=== PATIENT | female | born 1965 | race African-American/Black ===

== ENCOUNTER 2018-12-07 08:01 | Inpatient (IN) | payer BC ==
[~2018-12-07] VITALS: Ht 167.6 cm; Wt 98.4 kg
[2018-12-07 08:31] LABS: CHLORIDE 111 mEq/L (98-107)
[2018-12-07 08:32] LABS: BASOPHILS % 0.2 % (0.0-2.0); EOSINOPHILS % 4.6 % (0.0-5.0); LYMPHOCYTES % 26.6 % (20.0-50.0); MEAN CORPUSCULAR HEMOGLOBIN 28.4 pg (28.0-32.0); MEAN CORPUSCULAR VOLUME 85.4 fL (81.0-99.0); MEAN PLATELET VOLUME 7.7 fl (7.4-10.4); MONOCYTES % 3.6 % (2.0-8.0); PLATELET 350 x1000/uL (130-400); RED BLOOD CELL COUNT 4.92 mill/uL (4.2-5.4); RED CELL DISTRIBUTION WIDTH 15.1 % (11.6-14.6)
[2018-12-07 08:33] LABS: PROTHROMBIN TIME 10.2 sec (9.6-11.0)
[2018-12-07 08:36] LABS: ETHANOL BLOOD < 10 mg/dL
[2018-12-07 08:39] LABS: LDL CHOLESTEROL 130 mg/dL (5-100)
[2018-12-07 08:40] LABS: CREATINE KINASE 97 IU/L (26-192)
[2018-12-07] MEDS ORDERED: ASPIRIN 325MG EC TABLET PO ONE (09:15)
[2018-12-07] MEDS ORDERED: ONDANSETRON HCL 4MG/2ML INJ IV PRN (09:45)
[2018-12-07] MEDS ORDERED: IPRATROPIUM/ALBUTEROL 0.5-3(2.5)MG/3ML NEB INH PRN (09:45)
[2018-12-07] MEDS ORDERED: NA PHOS,M-B/NA PHOS,DI-BA ENEMA 118ML PR PRN (09:45)
[2018-12-07] MEDS ORDERED: HYDROCODONE/ACETAMINOPHEN 5/325MG TABLET PO PRN (09:45)
[2018-12-07] MEDS ORDERED: GUAIFENESIN 200MG/10ML SUGAR FREE UDC PO PRN (09:45)
[2018-12-07] MEDS ORDERED: DIPHENHYDRAMINE 50MG/ML VIAL IV PRN (09:45)
[2018-12-07] MEDS ORDERED: MAGNESIUM/ALUMINUM HYDROXIDE/SIMETHICONE 30ML UDC PO PRN (09:45)
[2018-12-07] MEDS ORDERED: CLONIDINE 0.1MG TABLET PO PRN (09:45)
[2018-12-07] MEDS ORDERED: DOCUSATE SODIUM 100MG CAPSULE PO PRN (09:45)
[2018-12-07] MEDS ORDERED: LORAZEPAM 2MG/ML CPJ IV PRN (09:45)
[2018-12-07 10:22] LABS: CHLORIDE 111 mEq/L (98-107)
[2018-12-07 11:44] VITALS: BP 147/76
[2018-12-07 12:19] VITALS: BP 147/76
[2018-12-07] MEDS: ENOXAPARIN 30MG/0.3ML SYR SUBCUT SCH (13:59)
[2018-12-07] MEDS ORDERED: IOHEXOL-350 100 ML BOTTLE ONE (14:04)
[2018-12-07 16:03] VITALS: BP 148/77
[2018-12-07] MEDS: SODIUM CHLORIDE 0.45% 1,000 ML IV SCH (17:27)
[2018-12-07] MEDS: CLOPIDOGREL 75MG TABLET PO SCH (19:39)
[2018-12-07 20:00] VITALS: BP 106/70
[2018-12-07] MEDS ORDERED: ATORVASTATIN CALCIUM 40MG TABLET PO SCH (21:00)
[2018-12-08] VITALS: BP 138/84
[2018-12-08 04:00] VITALS: BP 134/81
[2018-12-08 06:00] VITALS: BP 128/72
[2018-12-08] MEDS: ENOXAPARIN 30MG/0.3ML SYR SUBCUT SCH ×2 (06:40→17:37)
[2018-12-08 07:08] LABS: BASOPHILS % 0.7 % (0.0-2.0); EOSINOPHILS % 5.5 % (0.0-5.0); HEMATOCRIT. 42.3 % (36.0-48.0); HEMOGLOBIN. 14.2 g/dL (12.0-16.0); LYMPHOCYTES % 27.9 % (20.0-50.0); MEAN CORPUSCULAR HEMOGLOBIN 28.6 pg (28.0-32.0); MEAN CORPUSCULAR VOLUME 84.9 fL (81.0-99.0); NEUTROPHILS % 60.9 % (40.0-76.0); PLATELET 350 x1000/uL (130-400); RED BLOOD CELL COUNT 4.98 mill/uL (4.2-5.4); RED CELL DISTRIBUTION WIDTH 15.1 % (11.6-14.6)
[2018-12-08 07:30] LABS: CHLORIDE 111 mEq/L (98-107)
[2018-12-08 07:38] LABS: T4 FREE 0.91 ng/dL (0.76-1.46)
[2018-12-08 07:41] LABS: HDL CHOLESTEROL 26 mg/dL (40-59)
[2018-12-08 07:44] LABS: LDL CHOLESTEROL 130 mg/dL (5-100)
[2018-12-08 07:47] VITALS: BP 142/83
[2018-12-08] MEDS ORDERED: ASPIRIN 81MG EC TABLET PO SCH (09:00)
[2018-12-08] MEDS: CLOPIDOGREL 75MG TABLET PO SCH (09:11)
[2018-12-08] MEDS: SODIUM CHLORIDE 0.45% 1,000 ML IV SCH (11:05)
[2018-12-08 12:00] VITALS: BP 120/72
[2018-12-08 17:12] VITALS: BP 120/72
[2018-12-08 17:26] LABS: CREATINE KINASE 104 IU/L (26-192)
[2018-12-08 17:27] LABS: CREATINE KINASE MB FRACTION < 1.0 ng/mL (0.5-3.6)
== END 2018-12-08 18:30 | disposition home or self-care (01) | DRG 69 ==
LOC: EDBD 08:01 → ER 08:01 → 6WST 09:22 → EDBEDREQSVC 09:26 → EDBEDREQ 09:26 → ENRESERV 10:15
PROVIDERS: ADMIT Internal Medicine; ATTEND Internal Medicine
DX: G45.9 Transient cerebral ischemic attack, unspecified (principal); G93.41 Metabolic encephalopathy; E66.01 Morbid (severe) obesity due to excess calories; I67.82 Cerebral ischemia; E78.5 Hyperlipidemia, unspecified; E86.0 Dehydration; F17.200 Nicotine dependence, unspecified, uncomplicated; I10 Essential (primary) hypertension; R29.702 NIHSS score 2; R40.2410 Glasgow coma scale score 13-15, unspecified time; Z68.35 Body mass index [BMI] 35.0-35.9, adult; Z79.02 Long term (current) use of antithrombotics/antiplatelets; Z79.82 Long term (current) use of aspirin; Z79.899 Other long term (current) drug therapy
CPT/HCPCS: 36415; 70496; 70551; 71045; 80048; 80061; 80320; 82550; 82553; 82962; 83036; 83721; 83735; 83880; 84439; 84443; 84484; 85379; 93005; 93306; 96365; 96366; 96375; 99285; J1650; Q9967; G0480

== ENCOUNTER 2019-01-21 15:18 | Inpatient (IN) | payer BC ==
[~2019-01-21] VITALS: Ht 167.6 cm; Wt 94.8 kg
[2019-01-21] MEDS ORDERED: SODIUM CHLORIDE 0.9% 1,000 ML IV ONE (15:50)
[2019-01-21 16:17] LABS: BASOPHILS % 1.1 % (0.0-2.0); CHLORIDE 110 mEq/L (98-107); EOSINOPHILS % 6.5 % (0.0-5.0); HEMOGLOBIN. 13.2 g/dL (12.0-16.0); LYMPHOCYTES % 27.2 % (20.0-50.0); MEAN CORPUSCULAR HEMOGLOBIN 28.2 pg (28.0-32.0); MEAN CORPUSCULAR VOLUME 85.4 fL (81.0-99.0); MEAN PLATELET VOLUME 7.8 fl (7.4-10.4); MONOCYTES % 5.5 % (2.0-8.0); NEUTROPHILS % 59.7 % (40.0-76.0); PLATELET 338 x1000/uL (130-400); RED BLOOD CELL COUNT 4.69 mill/uL (4.2-5.4)
[2019-01-21 16:18] LABS: CLARITY URINE CLEAR (CLEAR); COLOR URINE YELLOW (YELLOW); KETONES URINE NEGATIVE (NEGATIVE); LEUKOCYTE ESTERASE URINE NEGATIVE (NEGATIVE); NITRITE URINE NEGATIVE (NEGATIVE); OCCULT BLOOD URINE 1+ (NEGATIVE); PROTEIN URINE NEGATIVE (NEGATIVE); UROBILINOGEN URINE 0.2 E.U./dL (0.2-1.0)
[2019-01-21 16:19] LABS: PARTIAL THROMBOPLASTIN TIME 28.1 sec (23.4-31.0); PROTHROMBIN TIME 10.3 sec (9.6-11.0)
[2019-01-21 16:24] LABS: LDL CHOLESTEROL 72 mg/dL (5-100)
[2019-01-21 16:25] LABS: CREATINE KINASE 89 IU/L (26-192)
[2019-01-21 20:58] VITALS: BP 143/83
[2019-01-21 21:00] VITALS: BP 143/83
[2019-01-21] MEDS ORDERED: ATORVASTATIN CALCIUM 40MG TABLET PO SCH (21:00)
[2019-01-21] MEDS ORDERED: ASPI-1158 PO (22:21)
[2019-01-21] MEDS ORDERED: LISI-604 PO (22:21)
[2019-01-21] MEDS ORDERED: ATOR40TA70 PO (22:21)
[2019-01-21] MEDS ORDERED: CLOP75TA33 PO (22:21)
[2019-01-21] MEDS ORDERED: MORPHINE SULFATE 2 MG/ML CPJ (NOT FOR IM USE) IV PRN (22:30)
[2019-01-22 00:35] VITALS: BP 112/55
[2019-01-22 03:57] VITALS: BP 128/80
[2019-01-22 08:00] VITALS: BP 143/88
[2019-01-22] MEDS ORDERED: LISINOPRIL 20MG TABLET PO SCH (09:00)
[2019-01-22] MEDS ORDERED: ENOXAPARIN 30MG/0.3ML SYR SUBCUT SCH (09:00)
[2019-01-22] MEDS ORDERED: ASPIRIN 81MG TABLET PO SCH (09:00)
[2019-01-22] MEDS ORDERED: CLOPIDOGREL 75MG TABLET PO SCH (09:00)
[2019-01-22 12:00] VITALS: BP 129/86
[2019-01-22 15:00] VITALS: BP 129/86
[2019-01-22 16:00] VITALS: BP 124/81
== END 2019-01-22 18:38 | disposition home or self-care (01) | DRG 92 ==
LOC: ER 15:18 → 8WST 16:39 → EDBEDREQSVC 16:56 → EDBEDREQ 16:56 → ENRESERV 19:51
PROVIDERS: ADMIT Internal Medicine; ATTEND Internal Medicine
DX: R47.81 Slurred speech (principal); G40.89 Other seizures; E66.9 Obesity, unspecified; I10 Essential (primary) hypertension; E87.8 Other disorders of electrolyte and fluid balance, not elsewhere classified; R29.810 Facial weakness; E78.5 Hyperlipidemia, unspecified; Z79.02 Long term (current) use of antithrombotics/antiplatelets; Z87.891 Personal history of nicotine dependence; Z79.82 Long term (current) use of aspirin; Z68.33 Body mass index [BMI] 33.0-33.9, adult; Z71.3 Dietary counseling and surveillance; I69.398 Other sequelae of cerebral infarction
CPT/HCPCS: 36415; 70544; 70551; 71045; 82550; 82962; 83721; 83880; 84484; 93005; 93880; 97161; 97535; J1650; J7030